=== PATIENT | female | born 1985 | race African-American/Black ===

== ENCOUNTER 2019-05-03 08:46 | Emergency (ER) | payer OTHER ==
[~2019-05-03] VITALS: Ht 177.8 cm; Wt 77.1 kg
[2019-05-03] MEDS ORDERED: PRENATA CHEWAB1 EACH PO (08:56)
[2019-05-03 09:29] VITALS: BP 101/65
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
[2019-05-03 10:25] VITALS: BP 101/65
--- NOTE | 2019-05-03 10:26 | NUR ---
ED Nurse Note: Pt cleared by health care Provider for discharge. DC instructions was given and explained to pt and verbalized understanding of teachings. All medical deviecs such as ID band removed. Pt is AAO x4, ambulatory and left with all personal belongings.
--- NOTE | 2019-05-03 12:16 | Diagnostic Imaging Report ---
Indication: Third trimester 33-year-old female with abdominal pain Technique: Grayscale and duplex Doppler imaging of the pelvis performed utilizing a transabdominal scan and endovaginal scan. Comparison: None Findings: Limited, emergency ultrasound evaluation performed demonstrating a single viable intrauterine . lie is longitudinal and the cephalic presentation demonstrated. heart motion demonstrated. Amniotic fluid appears normal. KIRT is 10.3 cm. The cervix is closed and measures 3.3 cm in length. There is no placenta previa. The placenta is posterior. Comprehensive anatomy assessment not performed. Estimated gestational age 35 weeks 2 days. Estimated weight 2544 g +/- 3 171 g. measurements are as follows: Biparietal diameter 8.8 cm, 35 weeks 6 days. Head circumference 31.7 cm, 35 weeks 4 days. Abdominal circumference 30.3 cm, 34 weeks 2 days. Femur length 6.9 cm, 35 weeks 3 days. IMPRESSION: Single viable intrauterine 35 weeks 2 days based on sonographic criteria. Normal KIRT. Closed cervix. Note: A negative ultrasound evaluation does not insure well-being or necessarily predict a positive outcome for the . monitoring including a nonstress test may be needed and clinical evaluation by [facility] is highly recommended.
== END 2019-05-03 10:42 | disposition home or self-care (01) ==
LOC: EMR 09:15
DX: O26.893 Other specified pregnancy related conditions, third trimester (principal); Z3A.36 36 weeks gestation of pregnancy; S16.1XXA Strain of muscle, fascia and tendon at neck level, initial encounter; V43.62XA Car passenger injured in collision with other type car in traffic accident, initial encounter; Y92.410 Unspecified street and highway as the place of occurrence of the external cause
CPT/HCPCS: 76805; 99284